=== PATIENT | female | born 1990 | race Caucasian/White ===

== ENCOUNTER 2019-09-06 18:56 | Inpatient (IN) | payer MEDICAID ==
[~2019-09-06] VITALS: Ht 154.9 cm; Wt 93.9 kg
[2019-09-06 21:57] LABS: BASOPHILS # (AUTO) 0.1 K/uL (0.00-0.22); BASOPHILS % (AUTO) 1.4 % (0.0-2.0); EOSINOPHILS # (AUTO) 0.1 K/uL (0-0.4); EOSINOPHILS % (AUTO) 0.8 % (0.0-4.0); HEMATOCRIT 38.1 % (36-48); HEMOGLOBIN 12.8 g/dL (12.0-16.0); LYMPHOCYTES # (AUTO) 2.4 K/uL (2.5-16.5); LYMPHOCYTES % (AUTO) 30.5 % (20.5-51.1); MEAN CORPUSCULAR HEMOGLOBIN 30 pg (27-31); MEAN CORPUSCULAR HGB CONC 34 g/dL (33-37); MEAN CORPUSCULAR VOLUME 87.8 fL (80-94); MONOCYTES # (AUTO) 0.6 K/uL (0.8-1.0); NEUTROPHILS # (AUTO) 4.8 K/uL (1.8-7.7); NEUTROPHILS % (AUTO) 60.3 % (42.2-75.2); PLATELET COUNT (AUTO) 246 K/uL (140-450); RED BLOOD CELL COUNT(AUTO) 4.33 MIL/uL (4.20-5.40); RED CELL DISTRIBUTION WIDTH 13.2 % (11.6-13.7); WHITE BLOOD COUNT (AUTO) 7.9 K/uL (4.8-10.8)
[2019-09-06 22:22] LABS: APPEARANCE,URINE SL CLOUDY (CLEAR); BILIRUBIN,URINE NEGATIVE (NEGATIVE); BLOOD, URINE NEGATIVE (NEGATIVE); COLOR,URINE YELLOW (YELLOW); LEUKOCYTE ESTERASE ,URINE NEGATIVE (NEGATIVE); NITRITE, URINE NEGATIVE (NEGATIVE); UGLUCOSE 3+ (NEGATIVE)
[2019-09-06 22:32] LABS: ALBUMIN 2.8 g/dL (3.4-5.0); ANION GAP 13.3 (8-16); CARBON DIOXIDE 22.6 mmol/L (21-32); CREATININE 0.6 mg/dL (0.6-1.3); POTASSIUM 3.9 mmol/L (3.5-5.1); TOTAL BILIRUBIN 0.2 mg/dL (0.0-1.0)
[2019-09-06] MEDS ORDERED: FLUCONAZOLE 100 MG TAB PO ONE (22:45)
[2019-09-06 22:57] LABS: RBC,URINE 0-5 /HPF (0-5); WBC,URINE 0-5 /HPF (0-5)
[2019-09-06 23:21] VITALS: BP 115/62
[2019-09-07] MEDS ORDERED: FLUCONAZOLE 100 MG TAB ONE (00:02)
[2019-09-07] MEDS: INSULIN LISPRO SLIDING SCALE 100 UNITS/ML VIAL SUBQ PRN ×3 (10:22→19:54)
--- NOTE | 2019-09-07 10:40 | NUR ---
PATIENT HAS BEEN SCREENED AND CATEGORIZED LOW NUTRITION RISK. PATIENT WILL BE SEEN WITHIN 7 DAYS OF ADMISSION. 09/13/[address]
== END 2019-09-07 20:30 | disposition home or self-care (01) | DRG 566 ==
LOC: MLD 18:56 → OBSVTOIN 21:18 → MLD 22:30
PROVIDERS: ADMIT Obstetrics & Gynecology; ATTEND Obstetrics & Gynecology
DX: O24.419 Gestational diabetes mellitus in pregnancy, unspecified control (principal); Z3A.26 26 weeks gestation of pregnancy
CPT/HCPCS: G0378 ×2; 36415; 76805; 76817; 80053; 81001; 82947; 82948; 85025; 86886; 86900; 86901; J1815; Q0092

== ENCOUNTER 2019-09-20 15:30 | Inpatient (IN) | payer MEDICAID ==
[~2019-09-20] VITALS: Ht 154.9 cm; Wt 93.9 kg
[2019-09-20] MEDS ORDERED: DEXTROSE 50% 50 ML SYR IVP PRN (15:45)
[2019-09-20] MEDS ORDERED: LACTATED RINGERS 1,000 ML IV SCH (15:45)
[2019-09-20] MEDS: BLOOD GLUCOSE MONITORING 1 DEV DEV FS SCH ×2 (16:14→20:45)
[2019-09-20] MEDS: INSULIN LISPRO SLIDING SCALE 100 UNITS/ML VIAL SUBQ PRN ×2 (16:39→20:36)
[2019-09-20] MEDS ORDERED: ACETAMINOPHEN EXTRA STRENGTH 500 MG TAB PO PRN (17:00)
[2019-09-20] MEDS ORDERED: ACETAMINOPHEN 325 MG TAB ONE (17:03)
[2019-09-20 17:12] LABS: APPEARANCE,URINE HAZY (CLEAR); BILIRUBIN,URINE 1+ (NEGATIVE); BLOOD, URINE NEGATIVE (NEGATIVE); COLOR,URINE YELLOW (YELLOW); LEUKOCYTE ESTERASE ,URINE NEGATIVE (NEGATIVE); NITRITE, URINE NEGATIVE (NEGATIVE); UGLUCOSE 2+ (NEGATIVE)
[2019-09-20 17:12] LABS: BASOPHILS % (AUTO) 0.5 % (0.0-2.0); EOSINOPHILS % (AUTO) 0.1 % (0.0-4.0); HEMATOCRIT 36.8 % (36-48); HEMOGLOBIN 12.2 g/dL (12.0-16.0); LYMPHOCYTES # (AUTO) 1.6 K/uL (2.5-16.5); LYMPHOCYTES % (AUTO) 16.5 % (20.5-51.1); MEAN CORPUSCULAR HEMOGLOBIN 29 pg (27-31); MEAN CORPUSCULAR HGB CONC 33 g/dL (33-37); MEAN CORPUSCULAR VOLUME 88.6 fL (80-94); MONOCYTES # (AUTO) 0.5 K/uL (0.8-1.0); MONOCYTES % (AUTO) 5.8 % (1.7-9.3); NEUTROPHILS # (AUTO) 7.3 K/uL (1.8-7.7); NEUTROPHILS % (AUTO) 77.1 % (42.2-75.2); PLATELET COUNT (AUTO) 250 K/uL (140-450); RED BLOOD CELL COUNT(AUTO) 4.15 MIL/uL (4.20-5.40); RED CELL DISTRIBUTION WIDTH 13.3 % (11.6-13.7); WHITE BLOOD COUNT (AUTO) 9.5 K/uL (4.8-10.8)
[2019-09-20 17:28] LABS: ALBUMIN 2.8 g/dL (3.4-5.0); ANION GAP 17.1 (8-16); CARBON DIOXIDE 20.7 mmol/L (21-32); CREATININE 0.5 mg/dL (0.6-1.3); POTASSIUM 3.8 mmol/L (3.5-5.1); TOTAL BILIRUBIN 0.4 mg/dL (0.0-1.0)
[2019-09-20] MEDS ORDERED: ACETAMINOPHEN 325 MG TAB PO PRN ×2 (17:35→23:00)
[2019-09-20] MEDS ORDERED: ZOLPIDEM 10 MG TAB PO ONE (22:25)
[2019-09-20] MEDS ORDERED: LACTATED RINGERS 500 ML IV ONE (22:25)
[2019-09-20] MEDS ORDERED: ZOLPIDEM 5 MG TAB ONE (22:31)
[2019-09-21] MEDS: INSULIN LISPRO SLIDING SCALE 100 UNITS/ML VIAL SUBQ PRN ×2 (06:56→10:51)
--- NOTE | 2019-09-21 09:24 | NUR ---
PATIENT HAS BEEN SCREENED AND CATEGORIZED MODERATE NUTRITION RISK. PATIENT WILL BE SEEN WITHIN 3-5 DAYS OF ADMISSION. 09/23/19 09/25/[address]
== END 2019-09-21 11:45 | disposition home or self-care (01) | DRG 566 ==
LOC: MLD 15:30 → OBSVTOIN 15:30 → MLD 15:32
PROVIDERS: ADMIT Obstetrics & Gynecology; ATTEND Obstetrics & Gynecology
DX: O36.8130 Decreased fetal movements, third trimester, not applicable or unspecified (principal); O24.419 Gestational diabetes mellitus in pregnancy, unspecified control; O36.8330 Maternal care for abnormalities of the fetal heart rate or rhythm, third trimester, not applicable or unspecified; Z3A.29 29 weeks gestation of pregnancy
CPT/HCPCS: 36415; 36600; 76805; 76819; 80053; 81003; 82803; 82947; 82948; 85025; J1815; J7120; Q0092

== ENCOUNTER 2019-10-22 13:44 | Inpatient (IN) | payer MEDICAID, SELFPAY ==
[~2019-10-22] VITALS: Ht 154.9 cm; Wt 98.0 kg
[2019-10-22] MEDS ORDERED: METHYLERGONOVINE 0.2 MG/ML AMP IM PRN (14:20)
[2019-10-22] MEDS ORDERED: PROMETHAZINE 25 MG/ML VIAL IVP PRN (14:20)
[2019-10-22] MEDS ORDERED: CARBOPROST 250 MCG/ML AMP IM PRN (14:20)
[2019-10-22] MEDS ORDERED: LACTATED RINGERS 1,000 ML IV SCH (14:20)
[2019-10-22] MEDS ORDERED: NOVN SUBQ (15:07)
[2019-10-22] MEDS ORDERED: INSULIN LISPRO SLIDING SCALE 100 UNITS/ML VIAL SUBQ PRN (15:10)
[2019-10-22 15:12] VITALS: BP 120/60
[2019-10-22 15:13] LABS: BASOPHILS % (AUTO) 0.5 % (0.0-2.0); EOSINOPHILS # (AUTO) 0.1 K/uL (0-0.4); EOSINOPHILS % (AUTO) 0.9 % (0.0-4.0); HEMATOCRIT 36.6 % (36-48); HEMOGLOBIN 12.1 g/dL (12.0-16.0); LYMPHOCYTES # (AUTO) 2.6 K/uL (2.5-16.5); LYMPHOCYTES % (AUTO) 31.9 % (20.5-51.1); MEAN CORPUSCULAR HEMOGLOBIN 29 pg (27-31); MEAN CORPUSCULAR HGB CONC 33 g/dL (33-37); MEAN CORPUSCULAR VOLUME 86.9 fL (80-94); MONOCYTES # (AUTO) 0.5 K/uL (0.8-1.0); MONOCYTES % (AUTO) 6.8 % (1.7-9.3); NEUTROPHILS # (AUTO) 4.8 K/uL (1.8-7.7); NEUTROPHILS % (AUTO) 59.9 % (42.2-75.2); PLATELET COUNT (AUTO) 234 K/uL (140-450); RED BLOOD CELL COUNT(AUTO) 4.21 MIL/uL (4.20-5.40); RED CELL DISTRIBUTION WIDTH 13.5 % (11.6-13.7)
[2019-10-22 15:17] LABS: APPEARANCE,URINE CLEAR (CLEAR); BILIRUBIN,URINE NEGATIVE (NEGATIVE); BLOOD, URINE NEGATIVE (NEGATIVE); COLOR,URINE YELLOW (YELLOW); LEUKOCYTE ESTERASE ,URINE NEGATIVE (NEGATIVE); NITRITE, URINE NEGATIVE (NEGATIVE); UGLUCOSE 3+ (NEGATIVE)
[2019-10-22 15:43] LABS: ALBUMIN 2.5 g/dL (3.4-5.0); ANION GAP 14.2 (8-16); CARBON DIOXIDE 21.4 mmol/L (21-32); CREATININE 0.5 mg/dL (0.6-1.3); POTASSIUM 3.6 mmol/L (3.5-5.1); TOTAL BILIRUBIN 0.2 mg/dL (0.0-1.0)
[2019-10-23] MEDS ORDERED: BETAMETH ACET/BETAMETH NA PH 30 MG/5 ML VIAL IM ONE (11:50)
[2019-10-23] MEDS ORDERED: BETAMETH ACET/BETAMETH NA PH 30 MG/5 ML VIAL IM SCH (12:00)
== END 2019-10-23 12:30 | disposition home or self-care (01) | DRG 566 ==
LOC: MFCC 13:44 → OBSVTOIN 10-23 08:41
PROVIDERS: ADMIT Obstetrics & Gynecology; ATTEND Obstetrics & Gynecology
DX: O36.8130 Decreased fetal movements, third trimester, not applicable or unspecified (principal); O40.3XX0 Polyhydramnios, third trimester, not applicable or unspecified; O24.113 Pre-existing type 2 diabetes mellitus, in pregnancy, third trimester; E11.9 Type 2 diabetes mellitus without complications; O34.219 Maternal care for unspecified type scar from previous cesarean delivery; Z20.828 Contact with and (suspected) exposure to other viral communicable diseases; Z90.49 Acquired absence of other specified parts of digestive tract; Z3A.34 34 weeks gestation of pregnancy
CPT/HCPCS: G0378 ×19; 36415; 76819; 80053; 81003; 82948; 85025; 86592; 86886; 86900; 86901; J0702; J7120; Q0092; U0003-CS

== ENCOUNTER 2019-10-24 12:27 | Observation (INO) | payer MEDICAID, SELFPAY ==
[~2019-10-24] VITALS: Ht 154.9 cm; Wt 98.0 kg
[~2019-10-24 12:27] MED LIST: NOVN SUBQ
[2019-10-24] MEDS ORDERED: BETAMETH ACET/BETAMETH NA PH 30 MG/5 ML VIAL IM SCH (13:00)
[2019-10-24 13:04] VITALS: BP 101/57
[2019-10-24] MEDS ORDERED: BETAMETH ACET/BETAMETH NA PH 30 MG/5 ML VIAL IM ONE (13:07)
== END 2019-10-24 14:15 | disposition home or self-care (01) ==
LOC: MFCC 12:27
PROVIDERS: ADMIT Obstetrics & Gynecology; ATTEND Obstetrics & Gynecology
DX: O40.3XX0 Polyhydramnios, third trimester, not applicable or unspecified (principal); O24.419 Gestational diabetes mellitus in pregnancy, unspecified control; O34.219 Maternal care for unspecified type scar from previous cesarean delivery; Z3A.34 34 weeks gestation of pregnancy
CPT/HCPCS: 59025; 96372; G0378; J0702

== ENCOUNTER 2020-03-14 17:18 | Emergency (ER) | payer OTHER, SELFPAY ==
[~2020-03-14] VITALS: Ht 152.4 cm; Wt 86.2 kg
[2020-03-14 17:32] VITALS: BP_SYST 135; BP_DIAS 193; BP_DIAS 93
--- NOTE | 2020-03-14 18:00 | NUR ---
c/o cough, CASTILLO, BODY ACHE,CONGESTION X 3 DAYS. MPTHER & SISTER HAD COVID TESTED POSITIVE. PMH: DM
--- NOTE | 2020-03-14 18:50 | NUR ---
COVID SWAB COLLECTED.
--- NOTE | 2020-03-14 18:58 | NUR ---
Patient discharged with v/s stable. Written and verbal after care instructions given and explained. Patient alert, oriented and verbalized understanding of instructions. Ambulatory with steady gait. All questions addressed prior to discharge. ID band removed. Patient advised to follow up with PMD. Rx of PROMETHAZINE,TYLENOL & CLARITIN given. Patient educated on indication of medication including possible reaction and side effects. Opportunity to ask questions provided and answered.
[2020-03-14 18:59] VITALS: BP 141/89
== END 2020-03-14 18:58 | disposition home or self-care (01) ==
LOC: MED 17:18
DX: R05 Cough (principal); Z20.828 Contact with and (suspected) exposure to other viral communicable diseases; E11.9 Type 2 diabetes mellitus without complications; Z79.4 Long term (current) use of insulin
CPT/HCPCS: 99283; U0003